=== PATIENT | male | born 1980 | race Caucasian/White ===

== ENCOUNTER 2016-10-19 22:59 | Emergency (ER) | payer SELFPAY ==
--- NOTE | 2016-10-19 23:40 | EDM.PDOC ---
ED HPI GENERAL MEDICAL PROBLEM - General Chief Complaint: Neurological Problem Stated Complaint: BLACKING OUT Time Seen by Provider: 10/19/16 23:34 - History of Present Illness INITIAL COMMENTS - FREE TEXT/NARRATIVE: HISTORY AND PHYSICAL: History of present illness: Patient is a 36-year-old white male who presents with a concern of syncopal episode he was at home LTE and then found himself up on the floor presumptively 6-7 hours later he does not have any recollection of any event he denies any associated trauma he does admit to methamphetamine use he states he stopped drinking months prior he is a smoker he denies chest pain palpitations shortness of breath or other concern Review of systems: As per history of present illness and below otherwise all systems reviewed and negative. Past medical history: As per history of present illness and as reviewed below otherwise noncontributory. Surgical history: As per history of present illness and as reviewed below otherwise noncontributory. Social history: No reported history of drug or alcohol abuse. Family history: As per history of present illness and as reviewed below otherwise noncontributory. Physical exam: HEENT: Atraumatic, normocephalic, pupils reactive, negative for conjunctival pallor or scleral icterus, mucous membranes moist, throat clear, neck supple, nontender, trachea midline. Lungs: Clear to auscultation, breath sounds equal bilaterally, chest nontender. Heart: S1S2, regular, negative for clicks, rubs, or JVD. Abdomen: Soft, nondistended, nontender. Negative for masses or hepatosplenomegaly. Negative for costovertebral tenderness. Pelvis: Stable nontender. Genitourinary: Deferred. Rectal: Deferred. Extremities: Atraumatic, negative for cords or calf pain. Neurovascular unremarkable. Neuro: Awake, alert, oriented. Cranial nerves II through XII unremarkable. Cerebellum unremarkable. Motor and sensory unremarkable throughout. Exam nonfocal. Diagnostics: CT brain CBC CMP troponin chest x-ray EKG Therapeutics: IV O2 monitor Impression: #1 syncope #2 substance abuse Definitive disposition and diagnosis as appropriate pending reevaluation and review of above. left hip/lower back Pain Score (Numeric/FACES): 6 - Related Data Allergies Allergy/AdvReac Type Severity Reaction Status Date / Time No Known Allergies Allergy Verified 10/19/16 23:04 Home Meds: Home Meds . [No Known Home Meds] 10/19/16 [History] Past Medical History - Past Health History Medical/Surgical History: Denies Medical/Surgical History HEENT History: Reports: None Cardiovascular History: Reports: None Respiratory History: Reports: None Gastrointestinal History: Reports: None Genitourinary History: Reports: None Musculoskeletal History: Reports: None Neurological History: Reports: None Psychiatric History: Reports: None Endocrine/Metabolic History: Reports: None Hematologic History: Reports: None Oncologic (Cancer) History: Reports: None Dermatologic History: Reports: None - Infectious Disease History Infectious Disease History: Reports: Chicken Pox Social & Family History - Family History Family Medical History: Noncontributory - Tobacco Use Smoking Status *Q: Current Every Day Smoker Years of Tobacco use: 17 Packs/Tins Daily: 0.5 - Recreational Drug Use Recreational Drug Use: Yes Drug Use in Last 12 Months: Yes Recreational Drug Type: Reports: Amphetamines (Speed) ED ROS GENERAL - Review of Systems Review Of Systems: ROS reveals no pertinent complaints other than HPI. ED EXAM, GENERAL - Physical Exam Exam: See Below (See dictation) Course - Vital Signs Last Recorded V/S: Last Vital Signs Temp 36.5 C 10/19/16 23:05 Pulse 91 10/19/16 23:05 Resp 18 10/19/16 23:05 BP 143/109 H 10/19/16 23:05 Pulse Ox 98 10/19/16 23:05 - Orders/Labs/Meds Orders: Active Orders 24 hr Category Date Time Status EKG 12 Lead [EKG Documentation Completion] [RC] STAT Care 10/19/16 23:39 Active Chest 1V Frontal [CR] Stat Exams 10/19/16 23:41 Ordered Head wo Cont [CT] Stat Exams 10/19/16 23:38 Ordered COMPREHENSIVE METABOLIC PN,CMP [CHEM] Stat Lab 10/19/16 23:50 Received Labs: Laboratory Tests 10/19/16 10/19/16 Range/Units 23:50 23:50 WBC 7.99 (4.0-11.0) K/uL RBC 4.99 (4.50-5.90) M/uL Hgb 15.6 (13.0-17.0) g/dL Hct 44.6 (38.0-50.0) % MCV 89.4 (80.0-98.0) fL MCH 31.3 (27.0-32.0) pg MCHC 35.0 (31.0-37.0) g/dL RDW Std Deviation 42.0 (28.0-62.0) fl RDW Coeff of Jorge 13 (11.0-15.0) % Plt Count 266 (150-400) K/uL MPV 8.90 (7.40-12.00) fL Neut % (Auto) 52.3 (48.0-80.0) % Lymph % (Auto) 35.3 (16.0-40.0) % [place] % (Auto) 9.4 (0.0-15.0) % Eos % (Auto) 2.9 (0.0-7.0) % Baso % (Auto) 0.1 (0.0-1.5) % Neut # (Auto) 4.2 (1.4-5.7) K/uL Lymph # (Auto) 2.8 H (0.6-2.4) K/uL [place] # (Auto) 0.8 (0.0-0.8) K/uL Eos # (Auto) 0.2 (0.0-0.7) K/uL Baso # (Auto) 0.0 (0.0-0.1) K/uL Nucleated RBC % 0.0 /100WBC Nucleated RBCs # 0 K/uL Troponin I < 0.10 (0.0-0.29) NG/ML Departure - Departure Time of Disposition: 00:08 Disposition: Home, Self-Care 01 Condition: Good Clinical Impression: Syncope, Substance abuse - Discharge Information Forms: ED Department Discharge Additional Instructions: The following information is given to patients seen in the emergency department who are being discharged to home. This information is to outline your options for follow-up care. We provide all patients seen in our emergency department with a follow-up referral. The need for follow-up, as well as the timing and circumstances, are variable depending upon the specifics of your emergency department visit. If you don't have a primary care physician on staff, we will provide you with a referral. We always advise you to contact your personal physician following an emergency department visit to inform them of the circumstance of the visit and for follow-up with them and/or the need for any referrals to a consulting specialist. The emergency department will also refer you to a specialist when appropriate. This referral assures that you have the opportunity for followup care with a specialist. All of these measure are taken in an effort to provide you with optimal care, which includes your followup. Under all circumstances we always encourage you to contact your private physician who remains a resource for coordinating your care. When calling for followup care, please make the office aware that this follow-up is from your recent emergency room visit. If for any reason you are refused follow-up, please contact the [facility] emergency department at and asked to speak to the emergency department charge nurse. [facility] [address] [place] [id number] Stop using drugs follow primary medical doctor and/or clinic above is discussed return as needed as discussed - My Orders Last 24 Hours: My Active Orders 10/19/16 23:38 Head wo Cont [CT] Stat 10/19/16 23:39 EKG 12 Lead [EKG Documentation Completion] [RC] STAT 10/19/16 23:41 Chest 1V Frontal [CR] Stat 10/19/16 23:50 COMPREHENSIVE METABOLIC PN,CMP [CHEM] Stat - Assessment/Plan Last 24 Hours: My Active Orders 10/19/16 23:38 Head wo Cont [CT] Stat 10/19/16 23:39 EKG 12 Lead [EKG Documentation Completion] [RC] STAT 10/19/16 23:41 Chest 1V Frontal [CR] Stat 10/19/16 23:50 COMPREHENSIVE METABOLIC PN,CMP [CHEM] Stat
[2016-10-20 00:28] LABS: CHLORIDE,CL 112 mmol/L (98-110); SODIUM,NA 141 mmol/L (136-146)
[2016-10-20 02:09] VITALS: BP 104/65
--- NOTE | 2016-10-20 09:59 | CT ---
EXAM DATE: 10/19/16 PATIENT'S AGE: 36 Patient: SHARON GAMA Facility: [place], [place] Site . Site : 1980 Study: CT Head WO CONT [id number]/[id number]/2017 12:19:24 AM Ordering Physician: Francheska Hilton Final Report: INDICATIONS: Syncope. TECHNIQUE: CT head without contrast. COMPARISON: None FINDINGS: No mass effect or midline shift. No hydrocephalus. No CT evidence of acute hemorrhage or infarction. No abnormal extra-axial fluid collection. Bone windows show no acute abnormality. Visualized paranasal sinuses and orbits are unremarkable. IMPRESSION: No acute intracranial abnormality. Dictated by Zion Johnson MD @ 10/20/2016 12:26:06 AM Dictated by: Zion Johnson MD @ 10/20/2016 00:26:20 (Electronic Signature) Report Signed by Proxy. [facility]
--- NOTE | 2016-10-20 10:00 | CR ---
EXAM DATE: 10/19/16 PATIENT'S AGE: 36 Patient: SHARON GAMA Facility: [place], [place] Site . Site : 1980 Study: XRay Chest [id number]/23/2017 12:19:40 AM Ordering Physician: Francheska Hilton Final Report: INDICATION: SYNCOPE TECHNIQUE: Chest 1 view COMPARISON: None FINDINGS: Cardiovascular and mediastinum: Heart size and vasculature are normal in caliber and appearance. Mediastinum is within normal limits. Lungs and pleural space: No focal consolidation. No sign of pleural effusion. No pneumothorax. Bones and soft tissues: No significant findings. IMPRESSION: No acute cardiopulmonary disease. Dictated by Paco Lebron MD @ 10/20/2016 12:23:37 AM Dictated by: Paco Lebron MD @ 10/20/2016 00:23:43 (Electronic Signature) Report Signed by Proxy. [facility]
== END 2016-10-20 02:14 | disposition home or self-care (01) ==
LOC: MW.ED 22:59
DX: R55 Syncope and collapse (principal); F15.10 Other stimulant abuse, uncomplicated; F17.210 Nicotine dependence, cigarettes, uncomplicated
CPT/HCPCS: 70450; 70450-26; 71010; 71010-26; 80053; 84484; 85025; 93005; 99284; 99284-25